=== PATIENT | male | born 1965 | race Caucasian/White ===

== ENCOUNTER 2017-06-09 19:09 | Emergency (ER) | payer MEDICAID, SELFPAY ==
[~2017-06-09] VITALS: Ht 177.8 cm; Wt 77.1 kg
[2017-06-09 19:19] VITALS: BP_SYST 199
[2017-06-09 20:46] VITALS: BP_SYST 178
== END 2017-06-09 20:46 | disposition home or self-care (01) ==
LOC: SED 19:09
DX: K02.9 Dental caries, unspecified (principal); I12.0 Hypertensive chronic kidney disease with stage 5 chronic kidney disease or end stage renal disease; N18.6 End stage renal disease; Z99.2 Dependence on renal dialysis; H91.90 Unspecified hearing loss, unspecified ear
CPT/HCPCS: 99283